=== PATIENT | male | born 1990 | race Caucasian/White ===

== ENCOUNTER 2020-07-16 12:38 | Emergency (ER) | payer OTHER, SELFPAY ==
[2020-07-16 13:13] VITALS: BP 145/76; PULSE 82; RESP 18; TEMP 37.1; O2SAT 99; BMI 23.7
--- NOTE | 2020-07-16 14:08 | DI.US.S_ITS ---
PROCEDURE: US SCROTUM INDICATIONS: PAIN TECHNIQUE: Real-time scanning was performed of the scrotum and testicles, with image documentation. Color and pulse Doppler interrogation was performed of both testicles. COMPARISON: None. FINDINGS: Right: Testicle is normal in size at 2.2 x 3.5 x 5.1 cm, and homogenous in echotexture. Epididymis is normal in overall size and morphology. No hydrocele or varicoceles. Overlying scrotal skin is normal in thickness. Left: Testicle is normal in size at 2.1 x 3.2 x 5.3 cm, and homogeneous in echotexture. Epididymis is normal in overall size and morphology. No hydrocele or varicoceles. Overlying scrotal skin is normal in thickness. Doppler: Color and pulse Doppler demonstrate normal and symmetric arterial flow in both testicles. IMPRESSION: Normal study. Dictated by: Balaji Carranza M.D. on 07/16/2020 at 15:04 Approved by: Balaji Carranza M.D. on 07/16/2020 at 15:05
--- NOTE | 2020-07-16 16:56 | PC.NURSE ---
went in room to evaluate patient and he was not in room. left before provider assessed him as well. ultrasound was done.
== END 2020-07-16 17:01 | disposition left against medical advice (07) ==
PROVIDERS: Emergency Provider Emergency Medicine
DX: N50.819 Testicular pain, unspecified (principal)
CPT/HCPCS: 76870; 81003; 99283

== ENCOUNTER → 2020-11-15 17:41 | Outpatient (CLI) | payer OTHER, SELFPAY ==
--- NOTE | 2020-11-15 17:45 | DI.RAD.S_ITS ---
PROCEDURE: XR FOOT RT MIN 3V INDICATIONS: Dropped water heater on top of foot, ambulating TECHNIQUE: 3 views of the foot were acquired. COMPARISON: None. FINDINGS: Bones: No fractures or dislocations. No suspicious bony lesions. Soft tissues: No tibiotalar joint effusion. Achilles tendon appears normal. IMPRESSION: No acute finding. Dictated by: Balaji Carranza M.D. on 11/15/2020 at 17:59 Approved by: Balaji Carranza M.D. on 11/15/2020 at 18:00
== END ==
LOC: RAD 17:44
PROVIDERS: Referring Provider Student in an Organized Health Care Education/Training Program; Visit Provider Student in an Organized Health Care Education/Training Program
DX: M79.671 Pain in right foot (principal); S97.81XA Crushing injury of right foot, initial encounter; W20.8XXA Other cause of strike by thrown, projected or falling object, initial encounter
CPT/HCPCS: 73630

== ENCOUNTER → 2022-05-28 15:28 | Outpatient (CLI) | payer OTHER, SELFPAY ==
--- NOTE | 2022-05-28 15:30 | DI.RAD.S_ITS ---
PROCEDURE: XR RIBS RT MIN 3V W CXR 1V INDICATIONS: Right rib injury - posterior T8 region TECHNIQUE: For views of the right ribs were acquired, along with a single view chest. COMPARISON: None. FINDINGS: Surgical changes and devices: None. Bones and chest wall: No fractures or dislocations. No suspicious bony lesions. Overlying soft tissues appear unremarkable. Lungs and pleura: No pleural effusions or pneumothorax. Lungs appear clear. Mediastinum: Mediastinal contours appear normal. Heart size is normal. IMPRESSION: Normal for age, source of current right rib pain symptoms is not seen. Dictated by: Tam Silva M.D. on 05/28/2022 at 15:53 Approved by: Tam Silva M.D. on 05/28/2022 at 15:54
== END ==
PROVIDERS: Referring Provider Registered Nurse; Visit Provider Registered Nurse
DX: R07.81 Pleurodynia (principal)
CPT/HCPCS: 71101